=== PATIENT | male | born 1955 | race Caucasian/White ===

== ENCOUNTER 2020-05-26 11:58 | Emergency (ER) | payer OTHER, SELFPAY ==
[2020-05-26 12:19] VITALS: BP 136/82; PULSE 87; RESP 16; TEMP 36.7; O2SAT 98
--- NOTE | 2020-05-26 13:07 | ED.EAR ---
HPI - Ear Problem General Chief complaint: Ear Stated complaint: ear pain Time Seen by Provider: 05/26/20 13:07 Source: patient and RN notes reviewed Mode of arrival: ambulatory Limitations: no limitations History of Present Illness HPI Narrative: 64 year old male who presents to [facility] care with complaints of left ear pain for the past 4 days described as aching and feelings of pressure. Patient states that he has noted some pressure also to his right ear the past 2 days. He states that he has history of frequent ear infections. He reports no fevers, no sinus congestion or cough, denies any drainage from his ears and reports no recent swimming MD Complaint: ear pain Location: bilateral Duration: constant Severity: mild Relieving factors: nothing Exacerbating factors: nothing Discharge from ear: Reports no Treatment prior to arrival: none Related Data Home Medications Medication Instructions Recorded Confirmed atorvastatin 40 mg PO DAILY 05/26/20 05/26/20 metformin 500 mg PO BID 05/26/20 05/26/20 tamsulosin 0.4 mg PO DAILY 05/26/20 05/26/20 Allergies Allergy/AdvReac Type Severity Reaction Status Date / Time Sulfa (Sulfonamide Allergy Unknown HIVES Verified 05/26/20 12:17 Antibiotics) Review of Systems Review of Systems: Narrative: CONSTITUTIONAL: Denies fever, chills, or sweats. EYES: Denies visual changes, redness, or discharge. ENT: Denies rhinorrhea, congestion, sore throat, positive otalgia. CARDIOVASCULAR: Denies chest pain, palpitations, or edema. RESPIRATORY: Denies cough or dyspnea. GASTROINTESTINAL: Denies abdominal pain, nausea, vomiting, or diarrhea. GENITOURINARY: Denies dysuria or hematuria. SKIN: Denies rash or itching. MUSCULOSKELETAL: Denies back pain, joint pain, or myalgia. NEUROLOGIC: Denies headache, numbness, or weakness. PSYCHIATRIC:positive history anxiety or depression. All systems reviewed & are unremarkable except as noted in HPI and below PMFSH Past Medical History Medical History (Updated 05/29/20 @ 09:59 by Radha Liu NP) Diabetes Hyperlipidemia Surgical History Surgical History (Updated 05/29/20 @ 10:07 by Radha Liu NP) H/O arthroscopy of right knee H/O sinus surgery Hx of LASIK Comments At time of signature, agree with nursing past medical, surgical, social history. There is no relevant family history pertinent to the presenting complaint Exam Narrative: Exam Narrative: GENERAL: Well-appearing, well-nourished, and in no acute distress. HEAD: Normocephalic, atraumatic. EYES: PERRLA and EOMI. ENT: Nares clear, no rhinorrhea or epistaxis. Mucous membranes moist.TM right ear normal with good light reflex, left TM red and bulging with no drainage from ear, throat pink no exudates or lesions or tonsil swelling NECK: Supple.no lymphadenopathy CHEST: Clear to auscultation. No respiratory distress. HEART: Regular rate and rhythm. No murmur heard. Normal peripheral pulses. ABDOMEN: Soft, nontender, nondistended, normal active bowel sounds. EXTREMITIES: Normal range of motion. No edema. SKIN: Warm, dry, no rash. NEURO: No focal deficits. Alert and oriented x3. Course Vital Signs Vital signs: Vital Signs Temperature 36.7 C 05/26/20 12:19 Pulse Rate 87 05/26/20 12:19 Respiratory Rate 16 05/26/20 12:19 Blood Pressure 136/82 05/26/20 12:19 Pulse Oximetry 98 05/26/20 12:19 Temperature 36.7 C 05/26/20 12:19 Pulse Rate 87 05/26/20 12:19 Respiratory Rate 16 05/26/20 12:19 Blood Pressure 136/82 05/26/20 12:19 Pulse Oximetry 98 05/26/20 12:19 Medical Decision Making Differential Diagnosis Differential Diagnosis: URI, otitis media, otitis externa, sinusitis Medical Records Medical records reviewed: Yes I reviewed the patient's medical records. Vital Signs Vital Signs: Vital Signs Temperature 36.7 C 05/26/20 12:19 Pulse Rate 87 05/26/20 12:19 Respiratory Rate 16 05/26/20 12:19 Blood Pressure 136/82 /
== END 2020-05-26 13:25 | disposition home or self-care (01) ==
PROVIDERS: Emergency Provider Registered Nurse
DX: H65.02 Acute serous otitis media, left ear (principal); E11.9 Type 2 diabetes mellitus without complications; E78.5 Hyperlipidemia, unspecified
CPT/HCPCS: 99213; G0463

== ENCOUNTER 2020-10-19 10:54 | Emergency (ER) | payer OTHER, SELFPAY ==
[2020-10-19 10:58] VITALS: BP 140/85; PULSE 97; RESP 16; TEMP 36.6; O2SAT 97
--- NOTE | 2020-10-19 11:07 | ED.URI ---
HPI - URI/Sore Throat General Chief Complaint: Upper Respiratory Infection Stated Complaint: sore throat Time Seen by Provider: 10/19/20 11:07 Source: patient Mode of arrival: ambulatory Limitations: no limitations History of Present Illness HPI Narrative: Joo Membreno is a 64 yo male with a PMH of diabetes, high cholesterol, BPH, who comes to express care with sore throat and L ear pain, pain 2/10, for about a week but has worsened last 3 days. No URI symptoms, no N/V/D. Related Data Home Medications Medication Instructions Recorded Confirmed atorvastatin 40 mg PO DAILY 05/26/20 10/19/20 metformin 500 mg PO BID 05/26/20 10/19/20 tamsulosin 0.4 mg PO DAILY 05/26/20 10/19/20 Allergies Allergy/AdvReac Type Severity Reaction Status Date / Time Sulfa (Sulfonamide Allergy Unknown HIVES Verified 10/19/20 11:05 Antibiotics) Review of Systems Review of Systems: Narrative: CONSTITUTIONAL: Denies fever, chills, sweats. EYES: Denies visual changes, redness, discharge. ENT: Denies rhinorrhea, congestion, sore throat, otalgia. CARDIOVASCULAR: Denies chest pain, palpitations, edema. RESPIRATORY: Denies dyspnea, wheezing, cough GASTROINTESTINAL: Denies abdominal pain, nausea, vomiting, diarrhea. GENITOURINARY: Denies dysuria, hematuria, abnormal discharge SKIN: Denies rash or itching. NEUROLOGIC: Denies numbness, or focal weakness. PSYCHIATRIC: Denies anxiety or depression. PMFSH Past Medical History Medical History BPH without urinary obstruction Diabetes Hyperlipidemia Surgical History Surgical History H/O arthroscopy of right knee H/O sinus surgery Hx of LASIK Social History Social History (Updated 10/19/20 @ 11:11 by Ashley Stout CNP) Smoking status: Never smoker Alcohol intake: never Comments At time of signature, I agree with nursing past medical, surgical, social and family history. There is no relevant family history pertinent to the presenting complaint. Exam Narrative: Exam Narrative: GENERAL: This is a well-nourished, well-developed patient, in mild distress. HEAD: normocephalic, atraumatic. EYES: Sclera clear/white. Vision is grossly intact. EARS: External ears normal, auditory canals clear and without drainage, fluid behind TMs, normal without perforation. Hearing grossly intact. NOSE: External nose normal without nasal discharge, nares with redness, no rhinorrhea. THROAT: Mucous membranes moist, posterior pharynx erythema with clear postnasal drip NECK: Neck supple, non-tender CARDIOVASCULAR: Regular rate and rhythm without murmurs, gallops, or rubs. RESPIRATORY: Clear to auscultation. Breath sounds equal bilaterally. No wheezes, rales, or rhonchi. GASTROINTESTINAL: Abdomen soft, SKIN: warm, intact with no suspicious lesions or rash, good texture and turgor. NEURO: awake, alert, and oriented to person, place and time. There were no obvious focal neurologic abnormalities. Steady gait EXTREMITIES: Normal range of motion on L. Loss of flexion above 90 degrees with difficulty touching his back, this, pain with exertion against deltoid BACK: Nontender without deformity Course Course Emergency Course: Patient came to express care for complaints of sore throat and left ear pain in addition has right arm stiffness with limited range of motion and discussed his diabetes control Vital Signs Vital signs: Vital Signs Temperature 97.9 F 10/19/20 10:58 Pulse Rate 97 10/19/20 10:58 Respiratory Rate 16 10/19/20 10:58 Blood Pressure 140/85 10/19/20 10:58 Pulse Oximetry 97 10/19/20 10:58 Temperature 97.9 F 10/19/20 10:58 Pulse Rate 97 10/19/20 10:58 Respiratory Rate 16 10/19/20 10:58 Blood Pressure 140/85 10/19/20 10:58 Pulse Oximetry 97 10/19/20 10:58 MDM - URI/Sore Throat Differential Diagnosis Differential diagnosis: Likely upper re
== END 2020-10-19 11:37 | disposition home or self-care (01) ==
PROVIDERS: Emergency Provider Nurse Practitioner
DX: J02.9 Acute pharyngitis, unspecified (principal); S46.001A Unspecified injury of muscle(s) and tendon(s) of the rotator cuff of right shoulder, initial encounter; X58.XXXA Exposure to other specified factors, initial encounter; E11.9 Type 2 diabetes mellitus without complications; E78.00 Pure hypercholesterolemia, unspecified; N40.0 Benign prostatic hyperplasia without lower urinary tract symptoms; Z79.84 Long term (current) use of oral hypoglycemic drugs
CPT/HCPCS: 87081; 87880; 99213; G0463

== ENCOUNTER 2021-07-21 10:11 | Emergency (ER) | payer OTHER, SELFPAY ==
[2021-07-21 10:39] VITALS: BP 120/64; PULSE 74; RESP 12; TEMP 36.4; O2SAT 99
--- NOTE | 2021-07-21 11:06 | ED.URI ---
HPI - URI/Sore Throat General Chief Complaint: Upper Respiratory Infection Stated Complaint: TICKLING IN EARS/SORE THROAT Source: patient and RN notes reviewed Limitations: no limitations History of Present Illness HPI Narrative: The vaccinated patient, on several routine meds, presents with itchy ears and throat. Patient states she has a shorter couple day history of itchy ears and throat. No fever, sore throat, sneezing/wheezing, cough, PND; no loss of taste/smell, CP, vomiting/diarrhea, S OB, rash . Symptoms are mild Related Data Home Medications Medication Instructions Recorded Confirmed tamsulosin 0.4 mg PO DAILY 05/26/20 07/21/21 atorvastatin 40 mg tablet 40 mg PO DAILY tablet 02/27/21 07/21/21 Allergies Allergy/AdvReac Type Severity Reaction Status Date / Time Sulfa (Sulfonamide Allergy Unknown HIVES Verified 07/21/21 10:39 Antibiotics) Review of Systems Review of Systems: General/Constitutional: No weight loss,fever Eyes: N0: Redness,discharge Ears/Nose/Throat: No: Epistaxis,ear discharge Respiratory: Denies: Hemoptysis Gastrointestinal: No Vomiting, Bleeding-rectal Skin: No Lumps, eruption Neurologic: No Focal Weakness,Sz Hematologic: Denies: Petechiae/Purpura Psychiatric: No: Suicida ideationl All Other Systems: Reviewed and Negative PMFSH Past Medical History Medical History (Updated 07/21/21 @ 11:07 by Marco Antonio Dowell MD) Blood type O+ BPH without urinary obstruction Diabetes Hyperlipidemia Surgical History Surgical History H/O arthroscopy of right knee H/O sinus surgery Hx of [facility] Social History Social History Smoking status: Never smoker Alcohol intake: never Substance use: never Gender identity (if verbalized by the patient): Male Spiritual care concerns: No Comments At time of signature, agree with nursing past medical, surgical, social and family history. There is no relevant family history pertinent to the presenting complaint Exam Narrative: General Appearance: Well appearing, Well nourished EYE: PERRLA, Conjunctiva clear Ears: Mild R>L eczema auditory canal normal, TM normal Nose: no rhinorrhea, Mucousal erythema Mouth/Throat: MM moist, Uvula midline, no pharyngeal erythema Neck: Supple, No adenopathy Respiratory: No respiratory distress, Breath sounds equal, Clear to auscultation Cardiovascular: RRR, No JVD Musculoskeletal: Non tender, Normal strength Skin: Warm, Dry Neurological: A&O x3, CN II-XII intact Psychiatric: Normal mood, Normal affect Course Vital Signs Vital signs: Vital Signs Temperature 97.5 F L 07/21/21 10:39 Pulse Rate 74 07/21/21 10:39 Respiratory Rate 12 07/21/21 10:39 Blood Pressure 120/64 07/21/21 10:39 Pulse Oximetry 99 07/21/21 10:39 Temperature 97.5 F L 07/21/21 10:39 Pulse Rate 74 07/21/21 10:39 Respiratory Rate 12 07/21/21 10:39 Blood Pressure 120/64 07/21/21 10:39 Pulse Oximetry 99 07/21/21 10:39 Discharge Plan Discharge Clinical Impression: Otalgia of both ears Patient Disposition: Home, Self-Care Condition: Stable Instructions: Fluid In The Ear (Serous Otitis Media) (ED) Prescriptions: New dmjxbhtv-ljumioity-YF 3.5-10,000-1 mg/mL-unit/mL-% solution 4 drop RIGHT EAR Q8H Qty: 10 RF: 0 azithromycin 250 mg tablet See Rx Instructions .ROUTE .COMPLEX Qty: 6 RF: 0 azelastine 137 mcg (0.1 %) aerosol,spray 137 mcg NASAL Q12H Qty: 30 RF: 0 No Action tamsulosin 0.4 mg capsule 0.4 mg PO DAILY RF: 0 atorvastatin 40 mg tablet 40 mg PO DAILY RF: 0 metformin 500 mg tablet 500 mg PO BID Qty: 180 RF: 1 Other Ambulatory Orders: SARS-CoV-2 RNA, Qual RT-PCR (Routine) Location: Determined by Patient Ordered By: Marco Antonio Dowell Follow-up/Referrals: UNKNOWN,DOCTOR [Primary Care Provider] -
== END 2021-07-21 11:14 | disposition home or self-care (01) ==
PROVIDERS: Emergency Provider Emergency Medicine
DX: H92.03 Otalgia, bilateral (principal); Z20.822 Contact with and (suspected) exposure to COVID-19; E11.9 Type 2 diabetes mellitus without complications; E78.5 Hyperlipidemia, unspecified; N40.0 Benign prostatic hyperplasia without lower urinary tract symptoms
CPT/HCPCS: 99213; G0463

== ENCOUNTER → 2021-09-14 04:10 | Outpatient (CLI) | payer OTHER, SELFPAY ==
[2021-09-14 17:24] LABS: SARS-CoV-2 RNA PCR Negative
== END ==
PROVIDERS: Emergency Medicine; PCP Family Medicine; Visit Provider Physician Assistant
DX: Z20.822 Contact with and (suspected) exposure to COVID-19 (principal); H93.8X3 Other specified disorders of ear, bilateral; H92.03 Otalgia, bilateral; R09.89 Other specified symptoms and signs involving the circulatory and respiratory systems
CPT/HCPCS: C9803; U0003; U0005

== ENCOUNTER → 2021-09-25 02:23 | Outpatient (CLI) | payer OTHER, SELFPAY ==
[2021-09-25 19:34] LABS: SARS-CoV-2 RNA PCR Negative
== END ==
PROVIDERS: PCP Family Medicine; Visit Provider Family Medicine
DX: R68.89 Other general symptoms and signs (principal); Z20.822 Contact with and (suspected) exposure to COVID-19
CPT/HCPCS: C9803; U0003; U0005

== ENCOUNTER 2021-10-26 13:01 | Outpatient (CLI) | payer MEDICARE, SELFPAY ==
--- NOTE | ~2021-10-26 | XR_ITS ---
EXAMINATION: XR shoulder RT min 2V DATE: 10/26/2021 13:31 INDICATION: Right shoulder pain. TECHNIQUE: 4 views of right shoulder were obtained. COMPARISON: None. FINDINGS: Bone alignment is normal. No fracture. There is mild osteoarthritis of glenohumeral joint a nd severe osteoarthritis of acromioclavicular joint. IMPRESSION: 1. Polyarticular osteoarthritis. Reviewed, dictated and finalized at location A. ORATOR OPERATOR
--- NOTE | ~2021-10-26 | US_ITS ---
EXAMINATION: US venous doppler LE RT EXAM DATE: 10/26/2021 14:31 INDICATION: M79.89 - Other specified soft tissue disorders . TECHNIQUE: Multiple grayscale, color flow and Doppler images of the right lower extremity deep venous system were obtained and reviewed. There is no prior study for comparison. FINDINGS: The right common femoral, femoral and profunda veins demonstrate normal color flow, respira tory variation, augmentation and compressibility. Compressibility, color flow confirmed within the r ight popliteal, posterior tibial, peroneal, and greater saphenous veins. Right inguinal lymph node m easuring 1.8 x 0.9 x 2.0 cm. IMPRESSION: 1. No right lower extremity deep venous thrombosis. Reviewed, dictated and finalized at location B. TH CONCIERGE
== END 2021-10-26 13:02 | disposition home or self-care (01) ==
LOC: ANHIMG 13:10
PROVIDERS: PCP Family Medicine; Visit Provider Physician Assistant Medical
DX: M79.89 Other specified soft tissue disorders (principal); M19.011 Primary osteoarthritis, right shoulder
CPT/HCPCS: 73030; 93971

== ENCOUNTER 2022-03-27 01:32 | Day surgery (SDC) | payer MEDICARE, SELFPAY ==
[2022-03-19 11:17] VITALS: BMI 28.5
[2022-03-27 09:55] VITALS: BP 139/81; PULSE 66; RESP 18; TEMP 36.4; O2SAT 98; BMI 28.3
[2022-03-27] MEDS: LACTATED RINGERS 1,000 ML 150 ML IV CONT (10:14)
[2022-03-27 10:21] LABS: Glucose Point of Care 203 mg/dl (65-105)
--- NOTE | 2022-03-27 10:31 | PM.HPGS ---
History of Present Illness History of Present Illness Consent: Risks, benefits, and alternatives have been discussed and questions answered. Patient agrees to proceed with procedure. Chief complaint: neoplasm screening Narrative: Joo Membreno is a 66 year old male here for screening colonoscopy, last one 12 years ago. Review of Systems Constitutional: Constitutional: Denies headache(s) and Denies weakness Eyes: Eyes: Denies blurry vision ENT: Reports Normal hearing present, Denies headache(s) and Denies neck pain Cardiovascular: Cardiovascular: Denies chest pain and Denies dyspnea Respiratory: Respiratory: Denies dyspnea Gastrointestinal: Gastrointestinal: Reports no additional gastrointestinal complaints Genitourinary: Genitourinary: Denies dysuria Musculoskeletal: Musculoskeletal: Denies neck pain Integumentary/Breasts: Skin/Breast: Denies dry skin Neurologic: Reports Normal hearing present, Denies headache(s) and Denies weakness Psychiatric: Psychiatric: Denies anxiety Endocrine: Endocrine: Denies change in body appearance Hematologic/Lymphatic: Hematologic/Lymphatic: Denies easy bleeding Allergic/Immunologic: Allergic/Immunologic: Denies urticaria PMFSH Past Medical History Medical History (Updated 03/27/22 @ 10:32 by James Eller MD) Blood type O+ BPH without urinary obstruction Colon cancer screening Diabetes Hyperlipidemia Surgical History Surgical History H/O arthroscopy of right knee H/O sinus surgery Hx of LASIK Social History Social History Alcohol intake: never Substance use: never Substance use type: does not use Living arrangements: with family Gender identity (if verbalized by the patient): Male Spiritual care concerns: No Meds Home Medications and Allergies Home Medications Medication Instructions Recorded Confirmed Type atorvastatin 80 mg tablet 80 mg PO DAILY #90 tablet 01/21/22 03/27/22 Rx tamsulosin 0.4 mg capsule 0.4 mg PO DAILY #90 cap 01/21/22 03/27/22 Rx metformin 500 mg 24 hr 1,000 mg PO BID #360 tablet 03/13/22 03/27/22 Rx tablet,extended release flash glucose scanning reader #1 ea 03/20/22 03/20/22 Rx flash glucose sensor #6 ea 03/20/22 03/20/22 Rx Allergies Allergy/AdvReac Type Severity Reaction Status Date / Time Sulfa (Sulfonamide Allergy Unknown HIVES Verified 03/27/22 10:03 Antibiotics) Vital Signs Vital Signs - 24 hr 03/27/22 09:55 Temperature 97.5 F L Pulse Rate 66 Respiratory Rate 18 Blood Pressure 139/81 Pulse Oximetry 98 Exam Const: General: comfortable and no acute distress HENMT: General nose exam: Normal nares present Eyes: General: appearance normal, both eyes and all related structures Neck: Neck: no JVD Resp: Auscultation: clear to auscultation bilaterally Cardio: Rate: regular rate Rhythm: regular rhythm GI: Inspection: non-distended GI Palp: Yes Soft to palpation Skin: General skin exam: normal color Neuro: General: gait normal Speech: normal speech Extrem: General: normal to inspection Psych: Mental Status: mental status grossly normal Assessment and Plan Assessment and plan (1) Colon cancer screening: Code(s): Z12.11 - Encounter for screening for malignant neoplasm of colon Status: Acute Assessment and Plan: colonoscopy
--- NOTE | 2022-03-27 10:32 | P.PNAN_ITS ---
Anes - Initial Pre Proc Eval Procedure: Operation Date: 03/27/22 11:15 Proposed Procedures p Screening Colonoscopy - James Eller MD Date/Time: 03/27/22 10:32 Surgeon: James Eller MD Pre Op Diagnosis: neoplasm screening Patient Data Age: 66 Gender: M Height: 1.8 m Weight: 92.3 kg Last Vital Signs Temp 97.5 F L 03/27/22 09:55 Pulse 66 03/27/22 09:55 Resp 18 03/27/22 09:55 BP 139/81 03/27/22 09:55 Pulse Ox 98 03/27/22 09:55 Allergies Allergy/AdvReac Type Severity Reaction Status Date / Time Sulfa (Sulfonamide Allergy Unknown HIVES Verified 03/27/22 10:03 Antibiotics) Home Medications Medication Instructions Recorded Confirmed Type atorvastatin 80 mg tablet 80 mg PO DAILY #90 tablet 01/21/22 03/27/22 Rx tamsulosin 0.4 mg capsule 0.4 mg PO DAILY #90 cap 01/21/22 03/27/22 Rx metformin 500 mg 24 hr 1,000 mg PO BID #360 tablet 03/13/22 03/27/22 Rx tablet,extended release flash glucose scanning reader #1 ea 03/20/22 03/20/22 Rx flash glucose sensor #6 ea 03/20/22 03/20/22 Rx Laboratory Tests 03/27/22 10:18 POC Capillary Glucose 203 mg/dl H mg/dl (65-105) Patient hx anesthesia problems: none Family hx anesthesia problems: none Results Review: All pre-operative results and documents have been reviewed as part of the pre-operative evaluation. [facility] Past Medical History Medical History Blood type O+ BPH without urinary obstruction Diabetes Hyperlipidemia Surgical History Surgical History H/O arthroscopy of right knee H/O sinus surgery Hx of LASIK Social History Social History Alcohol intake: never Substance use: never Substance use type: does not use Living arrangements: with family Gender identity (if verbalized by the patient): Male Spiritual care concerns: No Anes - Eval Final PreProcedure Day of Procedure 03/27/22 10:32 Patient weight: overweight Heart: regular rate and rhythm Lungs: clear to auscultation Airway: Mallampati scale class II Neurological: alert and oriented Last oral intake: >/= 8 hours ASA classification: II Emergent: no Anesthetic plan: proceed Anesthesia type and monitoring: general GIVS and standard monitoring Results Review: All pre-operative results and documents have been reviewed as part of the pre-operative evaluation. Informed Consent: The patient's anesthetic plan and its attendant risks and benefits were discussed with the patient/family/POA. Questions were solicited and answers provided to the satisfaction of the patient/family/POA.
[2022-03-27 10:54] VITALS: BP 124/73; PULSE 53; RESP 16; O2SAT 99
[2022-03-27 11:04] VITALS: BP 123/76; PULSE 63; RESP 16; O2SAT 96
[2022-03-27 11:14] VITALS: BP 126/83; PULSE 60; RESP 20; O2SAT 98
== END 2022-03-27 11:25 | disposition home or self-care (01) ==
PROVIDERS: PCP Family Medicine; Visit Provider Internal Medicine Gastroenterology
PROC: 0DJD8ZZ Inspection of Lower Intestinal Tract, Via Natural or Artificial Opening Endoscopic (ICD-10-PCS; CPT 45378; principal; 2022-03-27 11:15)
DX: Z12.11 Encounter for screening for malignant neoplasm of colon (principal); D12.0 Benign neoplasm of cecum; D12.3 Benign neoplasm of transverse colon; K57.30 Diverticulosis of large intestine without perforation or abscess without bleeding; E11.9 Type 2 diabetes mellitus without complications; E78.5 Hyperlipidemia, unspecified; N40.0 Benign prostatic hyperplasia without lower urinary tract symptoms; Z79.84 Long term (current) use of oral hypoglycemic drugs
CPT/HCPCS: 45385; 82948; 88305; J2001; J2704; J7120

== ENCOUNTER 2022-05-09 08:55 | Outpatient (RCR) | payer MEDICARE, SELFPAY ==
[2022-05-09] MEDS: FAMOTIDINE 20 MG TABLET PO (10:33)
[2022-05-09] MEDS: diphenhydrAMINE HCl CAP 25 MG CAPSULE PO (10:33)
[2022-05-09 10:45] VITALS: BP 149/83; PULSE 76; RESP 18; TEMP 36.2; O2SAT 96
[2022-05-09] MEDS: BEBTELOVIMAB 175 MG/2 ML VIAL IV PUSH (10:54)
[2022-05-09 11:48] VITALS: BP 140/80; PULSE 73; RESP 18; O2SAT 97
== END 2022-05-09 16:00 ==
LOC: AMCINF 08:55
PROVIDERS: PCP Family Medicine; Referring Provider Family Medicine; Visit Provider Internal Medicine Hematology & Oncology
DX: U07.1 COVID-19 (principal); I10 Essential (primary) hypertension; E11.9 Type 2 diabetes mellitus without complications
CPT/HCPCS: A9270; M0222; Q0222

== ENCOUNTER 2022-10-09 11:29 | Outpatient (CLI) | payer MEDICARE, SELFPAY ==
[2022-10-09 18:56] LABS: Hemoglobin A1C 9.4 % (<5.7)
[2022-10-09 18:57] LABS: Alanine Aminotransferase 44 U/L (6-50); Albumin Level 4.6 g/dL (3.5-5.1); Alkaline Phosphatase 80 U/L (38-126); Anion Gap 8 mmol/L (8-16); Aspartate Amino Transferase 84 U/L (17-59); Bilirubin,Total 0.7 mg/dL (0.2-1.3); Blood Urea Nitrogen 9 mg/dL (9-20); Calcium 9.1 mg/dL (8.4-10.2); Carbon Dioxide 27 mmol/L (22-30); Chloride 102 mmol/L (98-107); Cholesterol 150 mg/dL (0-200); Estimated Glomerular Filt Rate > 60; Glucose 171 mg/dL (65-110); HDL Direct 51 mg/dL; Potassium 4.1 mmol/L (3.4-5.0); Sodium 137 mmol/L (137-145); Triglycerides 171 mg/dL (<150)
[2022-10-09 19:08] LABS: LDL Cholesterol Direct 57 mg/dL
[2022-10-09 19:51] LABS: Creatinine Urine 233.5 mg/dL
[2022-10-09 19:54] LABS: MALB Creatinine Ratio 15.3 mg/g (0-30); Microalbumin Urine Random 35.8 mg/L (0-16.7)
== END 2022-10-09 11:30 | disposition home or self-care (01) ==
PROVIDERS: PCP Family Medicine; Visit Provider Family Medicine
DX: E11.9 Type 2 diabetes mellitus without complications (principal)
CPT/HCPCS: 36415; 80053; 80061; 82043; 83036

== ENCOUNTER 2022-10-30 14:16 | Outpatient (CLI) | payer MEDICARE, SELFPAY ==
--- NOTE | ~2022-10-30 | US_ITS ---
EXAMINATION: US arterial ankle brachial ind DATE: 10/30/2022 15:25 INDICATION: Other specified symptoms and signs involving the circulatory and respiratory systems. TECHNIQUE: Segmental pressures and plethysmographic and Doppler waveforms of the brachial and lower e xtremity arteries were obtained. COMPARISON: None. FINDINGS: Right and left brachial artery pressures of 113 mm Hg and 128 mm Hg, respectively, are concordant (no rmal difference <= 30 mmHg). The right ankle-brachial index (SAROJ) is 1.26 (normal >= 0.9-1.0). The right great toe-brachial index (TBI) is 1.14 (normal >= 0.65). Arterial Doppler waveforms are biphasic at the ankle. The left SAROJ is 1.19. The left TBI is 0.92. Arterial Doppler waveforms are biphasic at the ankle. IMPRESSION: 1. No significant arterial occlusive disease. Reviewed, dictated and finalized at location A. 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
== END 2022-10-30 14:17 | disposition home or self-care (01) ==
PROVIDERS: PCP Family Medicine; Visit Provider Physician Assistant
DX: E11.65 Type 2 diabetes mellitus with hyperglycemia (principal); Z11.59 Encounter for screening for other viral diseases; R09.89 Other specified symptoms and signs involving the circulatory and respiratory systems
CPT/HCPCS: 93922

== ENCOUNTER 2023-01-13 09:42 | Outpatient (CLI) | payer MEDICARE, SELFPAY ==
[2023-01-13 21:16] LABS: Hepatitis C Virus Antibody Negative (Negative)
[2023-01-13 21:30] LABS: Alanine Aminotransferase 35 U/L (6-50); Albumin Level 4.5 g/dL (3.5-5.1); Alkaline Phosphatase 81 U/L (38-126); Anion Gap 7 mmol/L (8-16); Aspartate Amino Transferase 55 U/L (17-59); Bilirubin,Total 0.6 mg/dL (0.2-1.3); Blood Urea Nitrogen 12 mg/dL (9-20); Calcium 8.8 mg/dL (8.4-10.2); Carbon Dioxide 29 mmol/L (22-30); Chloride 102 mmol/L (98-107); Estimated Glomerular Filt Rate > 60; Glucose 98 mg/dL (65-110); Potassium 3.8 mmol/L (3.4-5.0); Sodium 138 mmol/L (137-145)
== END 2023-01-13 09:43 | disposition home or self-care (01) ==
LOC: ANHGOSHLAB 09:43
PROVIDERS: PCP Family Medicine; Visit Provider Physician Assistant
DX: R74.8 Abnormal levels of other serum enzymes (principal); Z11.59 Encounter for screening for other viral diseases
CPT/HCPCS: 36415; 80053; 86803

== ENCOUNTER 2023-07-01 12:42 | Outpatient (CLI) | payer MEDICARE, SELFPAY ==
[2023-07-01 19:38] LABS: Anion Gap 12 mmol/L (8-16); Blood Urea Nitrogen 10 mg/dL (9-20); Calcium 10.1 mg/dL (8.4-10.2); Carbon Dioxide 26 mmol/L (22-30); Chloride 100 mmol/L (98-107); Estimated Glomerular Filt Rate > 60; Glucose 126 mg/dL (65-110); Potassium 3.7 mmol/L (3.4-5.0); Sodium 138 mmol/L (137-145)
== END 2023-07-01 12:43 | disposition home or self-care (01) ==
PROVIDERS: PCP Family Medicine; Visit Provider Internal Medicine Endocrinology, Diabetes & Metabolism
DX: E11.65 Type 2 diabetes mellitus with hyperglycemia (principal)
CPT/HCPCS: 36415; 80048

== ENCOUNTER 2023-07-31 09:42 | Outpatient (RCR) | payer MEDICARE, SELFPAY ==
[2023-07-31 09:43] VITALS: BMI 27.4
[2023-07-31 11:14] VITALS: BMI 27.4
== END 2023-10-27 09:15 | disposition home or self-care (01) ==
LOC: ANHDMC 09:42
PROVIDERS: PCP Family Medicine; Visit Provider Internal Medicine Endocrinology, Diabetes & Metabolism
DX: E11.65 Type 2 diabetes mellitus with hyperglycemia (principal); Z71.3 Dietary counseling and surveillance
CPT/HCPCS: 97802

== ENCOUNTER 2023-08-04 11:25 | Outpatient (CLI) | payer MEDICARE, SELFPAY ==
[2023-08-06 06:32] LABS: C-Peptide 2.88 ng/mL (0.80-3.85)
== END 2023-08-04 11:26 | disposition home or self-care (01) ==
LOC: ANHGOSHLAB 11:27
PROVIDERS: PCP Family Medicine; Visit Provider Internal Medicine Endocrinology, Diabetes & Metabolism
DX: E11.65 Type 2 diabetes mellitus with hyperglycemia (principal)
CPT/HCPCS: 36415; 84681

== ENCOUNTER 2023-11-14 11:06 | Outpatient (CLI) | payer MEDICARE, SELFPAY ==
[2023-11-14 19:43] LABS: Alanine Aminotransferase 30 U/L (6-50); Albumin Level 4.6 g/dL (3.5-5.1); Alkaline Phosphatase 77 U/L (38-126); Anion Gap 10 mmol/L (8-16); Aspartate Amino Transferase 33 U/L (17-59); Blood Urea Nitrogen 16 mg/dL (9-20); Calcium 9.5 mg/dL (8.4-10.2); Carbon Dioxide 29 mmol/L (22-30); Chloride 100 mmol/L (98-107); Cholesterol 163 mg/dL (0-200); Estimated Glomerular Filt Rate > 60; Glucose 131 mg/dL (65-110); HDL Direct 58 mg/dL; Potassium 3.9 mmol/L (3.4-5.0); Sodium 139 mmol/L (137-145); Triglycerides 171 mg/dL (<150)
[2023-11-14 19:54] LABS: LDL Cholesterol Direct 77 mg/dL
[2023-11-14 20:06] LABS: Creatinine Urine 108.9 mg/dL
[2023-11-14 20:08] LABS: MALB Creatinine Ratio 6.3 mg/g (0-30); Microalbumin Urine Random 6.9 mg/L (0-16.7)
== END 2023-11-14 11:07 | disposition home or self-care (01) ==
LOC: ANHGOSHLAB 11:08
PROVIDERS: PCP Family Medicine; Visit Provider Nurse Practitioner Family
DX: E11.65 Type 2 diabetes mellitus with hyperglycemia (principal); N40.0 Benign prostatic hyperplasia without lower urinary tract symptoms; E78.2 Mixed hyperlipidemia; R74.8 Abnormal levels of other serum enzymes
CPT/HCPCS: 36415; 80053; 80061; 82043

== ENCOUNTER 2024-03-02 08:01 | Outpatient (CLI) | payer MEDICARE, SELFPAY ==
--- NOTE | ~2024-03-02 | CT_ITS ---
EXAMINATION: CT abdomen w con DATE: 03/02/2024 08:46 INDICATION: Cystic kidney, acquired. TECHNIQUE: Computed tomography (CT) of the abdomen was performed with 100 mL Omnipaque 350 intravenou s contrast. Automated exposure control and iterative reconstruction technique were employed. The dose -length product was 442.22 mGy-cm. COMPARISON: None. FINDINGS: The visualized portions of the lung bases demonstrate 5 mm and 7 mm nodules in right middle lobe. No pleural effusion. The heart size is normal. No pericardial effusion. There are coronary art ree calcifications. There are calcifications of the aortic valve. The liver, gallbladder, spleen, gilbert creas, adrenal glands, and right kidney are normal. There is a 4.0 cm cyst in left kidney. Aortic ath erosclerosis is noted. There are no dilated loops of bowel. There are no pathologically enlarged lymp h nodes. There is no free intraperitoneal fluid. There is mild thoracic spondylosis and moderate lumb ar spondylosis. IMPRESSION: 1. Benign cyst in left kidney. 2. 7 mm and 5 mm right middle lobe pulmonary nodules, probably benign. Noncontrast low-dose chest CT is recommended in 6-12 months. Reviewed, dictated and finalized at location E. IMPRESSION: 1. Benign cyst in left kidney. 2. 7 mm and 5 mm right middle lobe pulmonary nodules, probably benign. Noncontr ast low-dose chest CT is recommended in 6-12 months.
[2024-03-02 08:39] LABS: Estimated Glomerular Filt Rate 60
== END 2024-03-02 08:02 | disposition home or self-care (01) ==
PROVIDERS: PCP Family Medicine; Visit Provider Family Medicine
DX: N28.1 Cyst of kidney, acquired (principal); R91.8 Other nonspecific abnormal finding of lung field
CPT/HCPCS: 74160; Q9967

== ENCOUNTER 2024-06-24 11:05 | Outpatient (CLI) | payer MEDICARE, SELFPAY ==
[2024-06-24 13:37] LABS: Alanine Aminotransferase 29 U/L (6-50); Albumin Level 4.5 g/dL (3.5-5.1); Alkaline Phosphatase 75 U/L (38-126); Anion Gap 9 mmol/L (4-12); Aspartate Amino Transferase 67 U/L (17-59); Bilirubin,Total 0.7 mg/dL (0.2-1.3); Blood Urea Nitrogen 15 mg/dL (9-20); Calcium 9.1 mg/dL (8.4-10.2); Carbon Dioxide 29 mmol/L (22-30); Chloride 101 mmol/L (98-107); Cholesterol 140 mg/dL (0-200); Estimated Glomerular Filt Rate > 60; Glucose 114 mg/dL (65-110); HDL Direct 61 mg/dL; Potassium 4.2 mmol/L (3.4-5.0); Sodium 139 mmol/L (137-145); Triglycerides 89 mg/dL (<150); Uric Acid 4.4 mg/dL (3.5-8.5)
[2024-06-24 13:49] LABS: LDL Cholesterol Direct 53 mg/dL
[2024-06-24 14:31] LABS: Hemoglobin A1C 6.6 % (<5.7)
== END 2024-06-24 11:06 | disposition home or self-care (01) ==
LOC: ANHGOSHLAB 11:06
PROVIDERS: PCP Family Medicine; Visit Provider Nurse Practitioner Family
DX: E11.65 Type 2 diabetes mellitus with hyperglycemia (principal); E78.2 Mixed hyperlipidemia; M10.9 Gout, unspecified; I10 Essential (primary) hypertension
CPT/HCPCS: 36415; 80053; 80061; 83036; 84550

== ENCOUNTER 2024-07-08 08:46 | Outpatient (CLI) | payer MEDICARE, SELFPAY ==
--- NOTE | 2024-07-08 09:04 | ECHO_ITS ---
Patient Info Name: Joo Membreno Age: 68 years : 1955 Gender: Male Ht: 71 in Wt: 190 lbs BSA: 2.09 m2 HR: 65 bpm BP: 128 / 89 mmHg Technical Quality: Good Exam Date: 07/08/2024 9:12 AM Exam Location: Echo Lab Patient Status: Outpatient Admit Date: 07/08/2024 Staff Ordering Physician: Ellie Haynes Hat Block Bench Hand: Anel Dwons RDCS Attending Provider: Ellie Haynes Referring Physician: Dallas MCNEILL; Exam Type: CA echo doppler color flow Study Info Indications I10 - Essential (primary) hypertension Complete two-dimensional, color flow and Doppler transthoracic echocardiogram is performed. Summary 1. Complete two-dimensional, color flow and Doppler transthoracic echocardiogram is performed. 2. Left ventricular chamber dimension is normal. 3. Left ventricular systolic function is normal, estimated at 60-65%. 4. The left ventricular diastolic function is grade I diastolic dysfunction. 5. E/e' 10 is mildly elevated. 6. Left atrial chamber dimension is mildly enlarged. 7. There is mild aortic valve sclerosis. 8. There is trace mitral valve regurgitation. 9. There is trace tricuspid valve regurgitation. Left Ventricle E/e' 10 is mildly elevated. Left ventricular chamber dimension is normal. Left ventricular systolic function is normal, estimated at 60-65%. The left ventricular diastolic function is grade I diastolic dysfunction. Right Ventricle Right ventricular systolic function is normal and with normal TAPSE 2.4 cm. Right ventricular chamber dimension is normal. Left Atria Left atrial chamber dimension is mildly enlarged. Right Atria Right atrial chamber dimension is normal. Aortic Valve The aortic valve is trileaflet. There is mild aortic valve sclerosis. There is no aortic valve stenosis. There is no aortic valve regurgitation. Pulmonic Valve There is no pulmonic regurgitation. Mitral Valve There is no mitral valve stenosis. There is trace mitral valve regurgitation. Tricuspid Valve RVSP is not calculated due to an in adequate TR jet. There is trace tricuspid valve regurgitation. Pericardium/Pleural There is no pericardial effusion. Inferior Vena Cava Normal inferior vena cava with >50% collapse upon inspiration consistent with normal right atrial pressure, 5 mmHg. Aorta The aortic root size at the sinus of Valsalva is normal. Left Ventricular Outflow Tract Name Value Normal LVOT 2D LVOT Diameter 2.0 cm LVOT Doppler LVOT Peak Gradient 4 mmHg LVOT Mean Gradient 2 mmHg LVOT VTI 18 cm LVOT VTI/AV VTI Ratio 0.7 LVOT Stroke Volume 55 ml LVOT CO 3.4 l/min LVOT CI 1.6 l/min/m2 Pulmonic Valve Name Value Normal PV Doppler PV Peak Gradient 3 mmHg
== END 2024-07-08 08:47 | disposition home or self-care (01) ==
PROVIDERS: PCP Family Medicine; Visit Provider Nurse Practitioner Family
DX: R93.89 Abnormal findings on diagnostic imaging of other specified body structures (principal); I35.8 Other nonrheumatic aortic valve disorders; I11.9 Hypertensive heart disease without heart failure
CPT/HCPCS: 93306

== ENCOUNTER 2024-08-16 07:58 | Outpatient (CLI) | payer MEDICARE, SELFPAY | END 2024-08-16 07:59 | disposition home or self-care (01) | LOC: ANHAUDASC 08:21 | PROVIDERS: PCP Family Medicine; Visit Provider Family Medicine | DX: H90.3 Sensorineural hearing loss, bilateral (principal) | CPT/HCPCS: 92557; 92567 ==

== ENCOUNTER 2024-09-09 14:35 | Outpatient (CLI) | payer MEDICARE, SELFPAY ==
--- NOTE | ~2024-09-09 | CT_ITS ---
CT Scan of the Chest without Contrast: Clinical Indication: Pulmonary nodule Technique: Contiguous sections were acquired throughout the chest without intravenous contrast. Dose reduction technique was used on this scan by utilizing automated exposure control and iterative recon struction technique. The dose-length product (DLP) was 179.88 mGy-cm. Findings: There is no evidence of any significant mediastinal, hilar or axillary lymphadenopathy. Extensive cor onary artery calcifications are present. There is no evidence of pleural or pericardial effusion. Right middle lobe nodules measure 8 mm and 5 mm in size (axial images 72, 71). 3 mm right lower lobe pulmonary nodule present (axial image 74). Images through the upper abdomen reveal no abnormalities. Impression: Subcentimeter pulmonary nodules, as above, largest measuring 8 mm. According to Fleischner Society cr iteria, for a low-risk patient, recommend follow-up CT scan in 3-6 months, then consider additional 1 8-[address] For a high-risk patient, follow-up CT scans at both 3-6 months and 18-24 months are re commended. Reviewed, dictated and finalized at location . Impression: Subcentimeter pulmonary nodules, as above, largest measuring 8 mm. According to Fleischner Society criteria, for a low-risk patient, recommend follow-up CT sc an in 3-6 months, then consider additional 18-[address]. For a high-risk husam ent, follow-up CT scans at both 3-6 months and 18-24 months are recommended.
== END 2024-09-09 14:36 | disposition home or self-care (01) ==
PROVIDERS: PCP Family Medicine; Visit Provider Nurse Practitioner Family
DX: R91.8 Other nonspecific abnormal finding of lung field (principal)
CPT/HCPCS: 71250